=== PATIENT | female | born 1945 | race Caucasian/White ===

== ENCOUNTER 2018-09-06 09:43 | Emergency (ER) | payer MEDICARE, OTHER ==
[~2018-09-06] VITALS: Ht 167.6 cm; Wt 104.3 kg
[2018-09-06] MEDS ORDERED: SIMVASTATIN10 MG ORAL (10:07)
[2018-09-06] MEDS ORDERED: MELOXICAM7.5 MG PO (10:07)
[2018-09-06] MEDS ORDERED: MAGNESIUM OXID400 M1 ORAL (10:07)
[2018-09-06] MEDS ORDERED: FUROSEMIDE20 M1 ORAL (10:07)
[2018-09-06 10:10] VITALS: BP 120/77
--- NOTE | 2018-09-06 10:11 | NUR ---
ED Nurse Note: pt walked in to ED due to right ear discomfort. per pt, tried to clean ear about 1 hr ago and q tip got stuck. AAO x4. respirations even and non-labored noted. skin warm to touch. ambulatory with steady gait using 4 wheel walker. will wait for the further order.
[2018-09-06] MEDS ORDERED: Hydrogen Peroxide 473ml Bottle TOPIC ONE ×2 (11:07→11:15)
--- NOTE | 2018-09-06 11:32 | Emergency Room Report ---
History of Present Illness General Chief Complaint: Earache Source: Patient Present Illness HPI Patient is concerned that she has the tip of a Q-tip in her right ear. She states that she was cleaning her ear with a Q-tip when she pulled the Q-tip out she noted that the top of the Q-tip was not on the Q-tip any longer. She states she also feels like something is in her ear. She denies pain. She has no other complaints. Allergies: Coded Allergies: No Known Allergies (Unverified , 09/06/18) Patient History Past Medical History: see triage record, HTN, AFib Social History: Denies: smoking, alcohol use, drug use Reviewed Nursing Documentation: PMH: Agreed; PSxH: Agreed Nursing Documentation-PMH Past Medical History: No History, Except For Hx Cardiac Problems: Yes - A-fib Review of Systems All Other Systems: negative except mentioned in HPI Physical Exam Vital Signs Date Time Temp Pulse Resp B/P (MAP) Pulse Ox O2 Delivery O2 Flow Rate FiO2 09/06/18 10:02 97.3 93 16 120/77 95 Room Air Sp02 EP Interpretation: reviewed, normal General Appearance: no apparent distress, alert, GCS 15, non-toxic Head: normocephalic, atraumatic Eyes: bilateral eye normal inspection, bilateral eye PERRL ENT: hearing grossly normal, normal pharynx, no angioedema, normal voice, TMs + canals normal Neck: normal inspection Musculoskeletal: back normal, gait/station normal, normal range of motion, non- tender Neurologic: alert, oriented x3, responsive, motor strength/tone normal, sensory intact, speech normal Psychiatric: judgement/insight normal, memory normal, mood/affect normal, no suicidal/homicidal ideation Skin: normal color, no rash, warm/dry, well hydrated Medical Decision Making Diagnostic Impression: Primary Impression: Ear fullness ER Course This patient felt like there was any cotton of a Q-tip stuck in her right ear. However on my examination I did not identify any foreign body in the ear. I was able to fully visualize external canal. At the patient's request, she did undergo irrigation of the right ear. At this time and identify an emergency medical condition. The patient is given close return precautions and follow-up instructions. Last Vital Signs Date Time Temp Pulse Resp B/P (MAP) Pulse Ox O2 Delivery O2 Flow Rate FiO2 09/06/18 10:10 97.3 93 16 120/77 95 Room Air Status: improved Disposition: HOME, SELF-CARE Condition: Improved Patient Instructions: Rosey Barroso DO Sep 06, 2018 11:32
[2018-09-06 11:48] VITALS: BP 120/77
--- NOTE | 2018-09-06 11:48 | NUR ---
ER DISCHARGE NOTE: Patient is cleared to be discharged per ERMD, pt is aox4, on room air, with stable vital signs. pt was given dc instructions, pt was able to verbalize understanding, pt id band removed. pt is able to ambulate with steady gait. pt took all belongings.
== END 2018-09-06 11:46 | disposition home or self-care (01) ==
LOC: EMR 11:00
DX: H93.8X1 Other specified disorders of right ear (principal); I48.91 Unspecified atrial fibrillation
CPT/HCPCS: 99282